=== PATIENT | female | born 1975 | race Caucasian/White ===

== ENCOUNTER 2016-09-09 21:10 | Observation (INO) | payer OTHER ==
--- NOTE | 2016-09-09 21:45 | PDGENHP ---
History and Physical - Chief Complaint 41 y.o. presents at 38 weeks with rectal bleeding & dec FM - History of Present Illness 41 y.o. female presents at 38 weeks with decreased movement and rectal bleeding since this evening History Information - Allergies/Home Medication List Allergies/Adverse Reactions: No Known Allergies Allergy (Unverified 06/27/12 06:09) Home Medications: Vit27&Calcium/Iron/FA [] 1 each PO DAILY 06/27/12 [Last Taken Unknown] Fish Oil 1 PO 06/22/14 [Last Taken Unknown] Magnesium 2 06/22/14 [Last Taken Unknown] Probiotic 1 DAILY 06/22/14 [Last Taken Unknown] I have personally reviewed and updated: family history, medical history, social history, surgical history - Past Medical History Additional medical history: cystic fibrosis gene carrier, viral meningitis with pericarditis/ hepatitis, arthrocentesis of left ankle joint, left shoulder SLAP / bicep tendon repair - Surgical History Additional surgical history: arthrocentesis of left ankle joint and left shoulder SLAP/ biceps tendon repair - Family History Positive for: cancer, stroke - Social History Smoking Status: Never smoked Alcohol Use: None Drug Use: None Review of Systems ROS: 10pt was reviewed & negative except for what was stated in HPI & below Constitutional: Reports: no symptoms EENMT: Reports: no symptoms Cardiac: Reports: no symptoms Respiratory: Reports: no symptoms Gastrointestinal: Reports: rectal bleeding Genitourinary: Reports: no symptoms Muscolosketal: Reports: no symptoms Skin: Reports: no symptoms Neurological: Reports: no symptoms Hematologic/Lymphatic: Reports: no symptoms Immunologic/Allergy: Reports: no symptoms
--- NOTE | 2016-09-09 22:10 | OBPROG ---
OBG Progress Note Assessment/Plan: Assessment: 41 y.o. presents at 38 weeks with rectal bleeding. Exam performed with absence of vaginal bleeding noted. SVE- 4/70/-3 IBOW. Denies uterine contractions or leaking amniotic fluid. Reports feeling good movement. Noted large rectal hemorroids with active bleeding noted. Plan: Admit patient for OBS. NST and VS per protocol. Consult with general surgery for rectal bleeding and hemorroids. 09/09/16 22:06 Subjective: Reports feeling well with concerns of rectal bleeding. Reports good movement. Denies vaginal bleeding, leaking amniotic fluid or uterine contractions. Denies fevers, n/v/d/c or changes in bowel or bladder habits. General surgery consult to see patient for rectal bleeding. - SVE Dilation (cm): 4 Effacement (%): 75 Station: -3 Current Contraction Pattern: Other (Specify) FHR (bpm): 140 FHR Pattern Variability: Moderate FHR Category: 1 Membranes: Intact - Physical Exam General Appearance: WD/WN, alert, no apparent distress Estimated Weight: 2501-3400g EENT: normal ENT inspection Neck: non-tender, full range of motion, supple Respiratory: chest non-tender, lungs clear, normal breath sounds Cardiac/Chest: normal peripheral pulses, regular rate, rhythm Abdomen: normal bowel sounds, non-tender, soft Genitourinary: rectal, other (rectal bleeding) Membranes: Intact Extremities: normal range of motion Back: Normal inspection Skin: normal color, warm/dry Neuro/Psych: alert, normal mood/affect, oriented x 3 ICD10 Worksheet Patient Problems: Problems Problem Status Diagnosed Premature rupture of membranes in , antepartum Acute
--- NOTE | 2016-09-09 22:49 | OBGCSDC ---
General Delivery Information - General Info : 3 Para: 2 Abortions: 0 Discharge Information - Discharge Information Discharge Medications: Vitamins Complications: rectal bleeding Condition: Good Discharge Physician/CNM: Sonja Khan Discharge Date: 09/09/16 Dictated: No
== END 2016-09-09 22:56 | disposition home or self-care (01) ==
LOC: FLD 21:10
PROVIDERS: ADMIT Midwife; ATTEND Midwife
DX: O22.43 Hemorrhoids in pregnancy, third trimester (principal); Z3A.38 38 weeks gestation of pregnancy
CPT/HCPCS: G0378 ×2

== ENCOUNTER 2016-09-13 10:09 | Inpatient (IN) | payer OTHER ==
[2016-09-13] MEDS ORDERED: MINERAL OIL 60 ML OIL TP PRN ×2 (11:01→12:09)
[2016-09-13] MEDS ORDERED: IBUPROFEN 600 MG TAB PO PRN (11:01)
[2016-09-13] MEDS ORDERED: OXYTOCIN/RINGERS LACTATE 1,000 ML IV PRN ×2 (11:01→12:09)
[2016-09-13] MEDS ORDERED: LIDOCAINE 1% 30 ML SDV SC PRN ×2 (11:01→12:09)
[2016-09-13] MEDS ORDERED: TERBUTALINE SULFATE 1 MG/ML VIAL IV PRN ×2 (11:01→12:09)
[2016-09-13] MEDS ORDERED: EPSOM SALT 454 GM TP PRN ×2 (11:01→12:09)
[2016-09-13] MEDS ORDERED: LR 1,000 ML IV PRN ×2 (11:01→12:09)
--- NOTE | 2016-09-13 11:42 | PDGENHP ---
History and Physical - Chief Complaint nausea and vomiting last night - History of Present Illness Patient is a 41 year old at 39 4/7 weeks who was scheduled for IOL last night due to symptoms of PIH including blurred vision/ spots and an elevated ALT. Patient stayed home because children had vomiting all night. +FM No vaginal bleeding possible SROM no contractions History Information - Allergies/Home Medication List Allergies/Adverse Reactions: No Known Allergies Allergy (Unverified 06/27/12 06:09) Home Medications: Vit27&Calcium/Iron/FA [] 1 each PO DAILY 06/27/12 [Last Taken Unknown] Fish Oil 1 PO 06/22/14 [Last Taken Unknown] Magnesium 2 06/22/14 [Last Taken Unknown] Probiotic 1 DAILY 06/22/14 [Last Taken Unknown] I have personally reviewed and updated: family history, medical history ( X 2 Family history of Breast, Lung and ovarian cancer Patient had flu vaccine) - Past Medical History Additional medical history: cystic fibrosis gene carrier, viral meningitis with pericarditis/ hepatitis, arthrocentesis of left ankle joint, left shoulder SLAP / bicep tendon repair - Surgical History Additional surgical history: arthrocentesis of left ankle joint and left shoulder SLAP/ biceps tendon repair - Family History Positive for: cancer, stroke - Social History Smoking Status: Never smoked Review of Systems ROS: 10pt was reviewed & negative except for what was stated in HPI & below Cardiac: Reports: no symptoms Respiratory: Reports: no symptoms Gastrointestinal: Reports: no symptoms Physical Exam Constitutional: no apparent distress Cardiovascular: regular rate and rhythym, no murmur, rub, or gallop, No edema Respiratory: no respiratory distress, no rales or rhonchi, clear to auscultation Gastrointestinal: normoactive bowel sounds, soft, non-tender abdomen, no palpable masses, other (Gravid 39 cm FHT 135 + accels no decelerations moderate variability) Skin: warm, normal color, no rashes or abrasions, no fluctuance, no induration, No mottled Musculoskeletal: full muscle strength, no muscle tenderness, normal joint ROM, no joint effusions Psychiatric: interacting appropriately Lab Data & Imaging Review 09/13/16 11:29 09/13/16 11:29 Assessment & Plan Assessment: IUP at 39 weeks 4 days IOL for PIH however normal BP no symptoms Labs pending Plan: Admit to labor and delivery IOL with PIH labs ordered ALT remains elevated will proceed with induction Okay for pain medication Cephalic confirmed by ultrasound O+/Rubella Immune/GBS negative
[2016-09-13 11:53] LABS: % IMMATURE GRANULYOCYTES 0.5 % (0.0-1.1); ABSOLUTE IMMATURE GRANULOCYTES 0.05 10^3/uL (0.00-0.10); ADD DIFF? NO; ADD MORPH? NO; ADD SCAN? NO; ATYPICAL LYMPHOCYTE FLAG 20 (0-99); FRAGMENT RBC FLAG 0 (0-99); HEMATOCRIT 37.4 % (38.0-47.0); HEMOGLOBIN 12.9 g/dL (12.6-16.3); LEFT SHIFT FLG 0 (0-99); LIPEMIA HEMOLYSIS FLAG 90 (0-99); MEAN CELL HEMOGLOBIN CONCENTR. 34.5 g/dL (32.4-36.7); MEAN CELL VOLUME 95.7 fL (81.5-99.8); MEAN PLATELET VOLUME 10.7 fL (8.7-11.7); PLATELET CLUMPS FLAG 0 (0-99); PLATELET COUNT 219 10^3/uL (150-400); RED BLOOD CELL COUNT 3.91 10^6/uL (4.18-5.33); RED CELL DISTRIBUTION WIDTH 13.3 % (11.5-15.2)
[2016-09-13 12:57] LABS: ALANINE AMINOTRANSFERASE 64 IU/L (9-52); ASPARTATE AMINOTRANSFERASE 36 IU/L (14-46); BILIRUBIN,TOTAL 0.7 mg/dL (0.1-1.4); BILIRUBIN-CONJUGATED 0.3 mg/dL (0.0-0.5); BILIRUBIN-UNCONJUGATED 0.4 mg/dL (0.0-1.1); CREATININE 0.5 mg/dL (0.6-1.0); GLOMERULAR FILTRATION RATE > 60; LACTATE DEHYDROGENASE 495 IU/L (313-618); URIC ACID 3.9 mg/dL (2.5-6.8)
[2016-09-13] MEDS ORDERED: TERBUTALINE SULFATE 1 MG/ML VIAL ONE (13:32)
[2016-09-13] MEDS ORDERED: AMMONIA AROMATIC 1 EACH AMP IH ONE ×2 (13:32→13:34)
[2016-09-13] MEDS ORDERED: LIDOCAINE 1% 30 ML SDV ONE (13:32)
[2016-09-13] MEDS ORDERED: MISOPROSTOL 200 MCG TAB ONE (13:33)
[2016-09-13] MEDS ORDERED: OXYTOCIN 10 UNIT/ML VIAL ONE (13:33)
--- NOTE | 2016-09-13 14:50 | OBPROG ---
OBG Progress Note Assessment/Plan: Assessment: Plan: Subjective: Patient wanting bag of water broken. Risk and benefits discussed with patient and . IOL started. Objective: 09/13/16 11:29 09/13/16 11:29 Patient ABO/Rh O POSITIVE 09/13/16 11:29 Uric Acid 3.9 mg/dL (2.5-6.8) 09/13/16 11:29 Total Bilirubin 0.7 mg/dL (0.1-1.4) 09/13/16 11:29 Conjugated Bilirubin 0.3 mg/dL (0.0-0.5) 09/13/16 11:29 Unconjugated Bilirubin 0.4 mg/dL (0.0-1.1) 09/13/16 11:29 AST 36 IU/L (14-46) 09/13/16 11:29 ALT 64 IU/L (9-52) H 09/13/16 11:29 Lactate Dehydrogenase 495 IU/L (313-618) 09/13/16 11:29 - SVE Dilation (cm): 5 Effacement (%): 80 ( ) Station: -1 Current Contraction Pattern: Irregular FHR (bpm): 135 FHR Pattern Variability: Moderate FHR Category: 1 Membranes: AROM Amniotic Fluid Color: Clear Uterine Position/Fundal Height: Umbilicus +3 Uterine Tone: Firm - Physical Exam Abdomen: normal bowel sounds Membranes: AROM Amniotic Fluid Color: clear Extremities: normal range of motion Peripheral Pulses: 2+: carotid (R), carotid (L), femoral (R), femoral (L), dorsalis-pedis (R), dorsalis-pedis (L) Skin: normal color, warm/dry Neuro/Psych: no motor/sensory deficits, alert, normal mood/affect, oriented x 3 ICD10 Worksheet Patient Problems: Problems Problem Status Diagnosed Premature rupture of membranes in , antepartum Acute
--- NOTE | 2016-09-13 16:10 | OBPROC ---
- Labor and Delivery Onset of Contractions Date: 09/13/16 Onset of Contractions Time: 14:35 Onset of Contractions Type: Spontaneous Rupture of Membranes Date: 09/13/16 Rupture of Membranes Time: 14:37 Rupture of Membranes Type: Artificial Amniotic Fluid Color: Clear Delivery Type: Spontaneous Placenta Delivery Date: 09/13/16 Placenta Delivery Time: 15:32 Episiotomy/Laceration: 1st Degree Repair: 2-0, Vicryl EBL: 400 Complications: Nuchal Cord - Medications Labor Augmentation/Induction Meds Used: None - Info Infant A Delivery Date: 09/13/16 Delivery Time: 14:32 Sex of Infant: Male Score (1 Min): 7 Score (10 Min): 9
[2016-09-13] MEDS ORDERED: SIMETHICONE 80 MG TAB CHEW PO PRN (16:11)
[2016-09-13] MEDS ORDERED: HYDROCODONE/APAP 5/325 TAB PO PRN (16:11)
[2016-09-13] MEDS: IBUPROFEN 600 MG TAB PO PRN ×2 (16:30→22:32)
[2016-09-13] MEDS ORDERED: OXYTOCIN/RINGERS LACTATE 1,000 ML IV SCH (16:30)
[2016-09-13 18:40] VITALS: RESP 16
[2016-09-13 20:36] VITALS: O2SAT 96
[2016-09-13] MEDS ORDERED: HYDROCORTISONE 0.5% CREAM TP PRN (21:01)
[2016-09-13] MEDS: DOCUSATE SODIUM 100 MG CAP PO PRN (22:32)
[2016-09-14] MEDS: IBUPROFEN 600 MG TAB PO PRN ×3 (04:19→17:00)
[2016-09-14 04:53] LABS: ALANINE AMINOTRANSFERASE 64 IU/L (9-52); ALBUMIN 2.5 g/dL (3.5-5.0); ALKALINE PHOSPHATASE 123 IU/L (38-126); ANION GAP 3 mEq/L (8-16); ASPARTATE AMINOTRANSFERASE 42 IU/L (14-46); BILIRUBIN,TOTAL 0.5 mg/dL (0.1-1.4); CARBON DIOXIDE 25 mEq/l (22-31); CHLORIDE 108 mEq/L (97-110); CREATININE 0.6 mg/dL (0.6-1.0); GLOMERULAR FILTRATION RATE > 60; GLUCOSE 76 mg/dL (70-100); POTASSIUM 4.2 mEq/L (3.5-5.2); SODIUM 136 mEq/L (134-144); TOTAL PROTEIN 5.4 g/dL (6.3-8.2)
--- NOTE | 2016-09-14 07:33 | SOAPPROG ---
SOAP Progress Note Assessment/Plan: Assessment: PP#1 s/p Normal spontaneous vaginal delivery Tolerating diet Ambulating well Plan: Continue current plan If stays another day will re check labs 09/14/16 07:30 09/14/16 07:39 Subjective: Doing well no complaints tolerating diet and ambulating well Objective: Vital Signs Temp Pulse Resp BP Pulse Ox 36.8 C 81 16 113/68 96 09/13/16 19:50 09/13/16 19:50 09/13/16 19:50 09/13/16 19:50 09/13/16 19:50 Laboratory Results 09/14/16 04:20 09/14/16 04:20 09/13/16 09/14/16 09/15/16 05:59 05:59 05:59 Output Total 400 Balance -400 - Pending Discharge Pending Discharge Within 24 Hours: Yes Pending Discharge Date: 09/15/16 Pending Discharge Time: 11:00 Physical Exam - Physical Exam General Appearance: WD/WN, alert, no apparent distress Respiratory: chest non-tender, lungs clear, normal breath sounds Cardiac/Chest: normal peripheral pulses, regular rate, rhythm Peripheral Pulses: 2+: carotid (R), carotid (L), femoral (R), femoral (L), dorsalis-pedis (R), dorsalis-pedis (L) Abdomen: normal bowel sounds, non-tender, soft Pelvic Exam: deferred Rectal: deferred Back: Normal inspection Skin: normal color, warm/dry Extremities: normal range of motion, non-tender, normal inspection, normal capillary refill Neuro/Psych: no motor/sensory deficits, alert, normal mood/affect, oriented x 3 ICD10 Worksheet Patient Problems: Problems Problem Status Diagnosed Premature rupture of membranes in , antepartum Acute
[2016-09-14] MEDS: DOCUSATE SODIUM 100 MG CAP PO PRN (08:04)
[2016-09-14 12:58] VITALS: BP 110/72; PULSE 72; TEMP 97.5
--- NOTE | 2016-09-14 19:04 | OBGCSDC ---
General Delivery Information - General Info : 3 Para: 2 Labs: Patient ABO/Rh O POSITIVE 09/13/16 11:29 Hct 31.2 % (38.0-47.0) L 09/14/16 04:20 - Portal Info A Sex of : Male Score (1 Min): 7 Score (5 Min): 9 Vaginal - Diagnosis Labor: Spontaneous Rupture of Membranes Type: Artificial Amniotic Fluid Color: Clear Repair: 2-0, Vicryl Complications: Nuchal Cord - Operations/Procedures Delivery Type: Spontaneous - Delivery EBL: 400 Discharge Information - Discharge Information Condition: Good Discharge Physician/CNM: Zuri Lehman Discharge Date: 09/14/16 Dictated: No
== END 2016-09-14 17:00 | disposition home or self-care (01) | DRG 775 ==
LOC: OBSVTOIN 10:09 → FLD 10:09 → FOB 19:31
PROVIDERS: ADMIT Obstetrics & Gynecology; ATTEND Obstetrics & Gynecology
PROC: 0HQ9XZZ Repair Perineum Skin, External Approach (ICD-10-PCS; principal; 2016-09-13)
PROC: 10E0XZZ Delivery of Products of Conception, External Approach (ICD-10-PCS; principal; 2016-09-13)
PROC: 10907ZC Drainage of Amniotic Fluid, Therapeutic from Products of Conception, Via Natural or Artificial Opening (ICD-10-PCS; principal; 2016-09-13)
DX: O13.3 Gestational [pregnancy-induced] hypertension without significant proteinuria, third trimester (principal); Z37.0 Single live birth; O70.0 First degree perineal laceration during delivery; O09.523 Supervision of elderly multigravida, third trimester; O69.82X0 Labor and delivery complicated by other cord entanglement, without compression, not applicable or unspecified; Z3A.39 39 weeks gestation of pregnancy
CPT/HCPCS: J2590; J3105